=== PATIENT | female | born 1995 | race Caucasian/White ===

== ENCOUNTER 2020-06-03 17:08 | Emergency (ER) | payer OTHER ==
[2020-06-03 17:25] VITALS: BP 147/80
--- NOTE | 2020-06-03 17:29 | ED Physician Documentation ---
PD HPI HEADACHE - Stated complaint Stated Complaint: MARTÍNEZ, BLURRY VISION, 32WKS PREGANT - Chief complaint Chief Complaint: Neuro - History obtained from History obtained from: Patient - History of Present Illness Timing - onset: Today (this morning) Timing - onset during: Rest Timing - duration: Hours Timing - details: Gradual onset (onset of some blurring of vision right lateral visual field, that increased from the side with blurriness, then noted some flashing lights, wiggly lines, nausea and headache. The vision improved after hour or so, but headache persists, along with some nausea.) Worst headache ever?: Worst headache ever? Location: Left Quality: Throbbing, Aching. No: Thunderclap Associated symptoms: Nausea, Vision changes. No: Fever, Stiff neck, Vomiting, Weakness, Numbness Worsened by: Light Contributing factors: Other (32 weeks ). No: Anticoagulated, Recent illness, Trauma Similar symptoms before: Has not had sx before Recently seen: Clinic (normal care so far.) Review of Systems Constitutional: denies: Fever, Chills Eyes: reports: Decreased vision (blurred laterally in right eye), Photophobia. denies: Loss of vision Ears: denies: Loss of hearing Nose: denies: Rhinorrhea / runny nose, Congestion Throat: denies: Sore throat Cardiac: denies: Chest pain / pressure Respiratory: denies: Cough GI: reports: Nausea. denies: Abdominal Pain, Vomiting, Diarrhea : denies: Discharge, Vaginal bleeding Skin: denies: Rash Musculoskeletal: reports: Extremity swelling (mild, slow onset later .). denies: Neck pain, Back pain Neurologic: reports: Generalized weakness, Headache. 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 Normal visual field testing. ), Pharynx benign - Neck Neck: Supple, no meningeal sign, No adenopathy - Cardiac Cardiac: No murmur. No: RRR (regular but tachycardic, even for . ) - Respiratory Respiratory: Clear bilaterally - Abdomen Abdomen: Soft, Non tender, Other (gravid abd with fundus between umbilicus and xyphoid. 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 Concern for pre-eclampsia as cause. Does not seem to be symptoms/clinical concern for ICH/CVA), d/w patient ED course: Dr. Villavicencio, OB, here in ED to assess pt and will take her to L&D for further care, presuming is pre-eclamptic. Departure - Departure Disposition: 01 Home, Self Care Clinical Impression: Headache, Visual disturbance, Condition: Stable Follow-Up: Neli Villavicencio MD [Provider Admit Priv/Credential] - Comments: Go to labor and delivery for further care Discharge Date/Time: 06/03/20 17:57 NIHSS - Level of Consciousness Level of consciousness: (0) Alert, Keenly responsive LOC Questions: (0) Answers both Q's correct LOC Commands: (0) Performs both correctly - Gaze Best Gaze: (0) Normal - Visual Visual: (0) No loss - Facial Palsy Facial Palsy: (0) Normal, symmetrical movement - Motor Arms (both separate) Motor Arm (right): (0) No drift Motor Arm (left): (0) No drift - Motor Legs (both separate) Motor Leg (right): (0) No drift Motor Leg (left): (0) No drift - Limb Ataxia Limb Ataxia: (0) Absent - Sensory Sensory: (0) Normal - Best Language Best Language: (0) No aphasia - Dysarthria Dysarthria: (0) Normal - Extinction and Inattention (formally neg Extinction and inattention: (0) No abnormality - Total Score/Results Total Score/Result: 0
== END 2020-06-03 17:57 | disposition home or self-care (01) ==
LOC: ED 17:08
DX: O99.89 Other specified diseases and conditions complicating pregnancy, childbirth and the puerperium (principal); R51 Headache; H53.8 Other visual disturbances; Z3A.32 32 weeks gestation of pregnancy
CPT/HCPCS: 99284

== ENCOUNTER 2020-06-29 07:00 | Outpatient (CLI) | payer OTHER ==
[2020-06-29 19:01] LABS: TRICHOMONAS VAGINALIS DNA NEGATIVE (NEGATIVE)
== END 2020-06-29 23:59 | disposition home or self-care (01) ==
LOC: LAB.R 07:00
PROVIDERS: ATTEND Obstetrics & Gynecology
DX: Z36.85 Encounter for antenatal screening for Streptococcus B (principal); Z11.3 Encounter for screening for infections with a predominantly sexual mode of transmission
CPT/HCPCS: 87491; 87591; 87661; 87797

== ENCOUNTER 2020-06-29 12:29 | Outpatient (CLI) | payer OTHER ==
[2020-06-29 12:48] VITALS: BP 126/83
[2020-06-29] MEDS ORDERED: LACTATED RINGERS 1,000 ML IV ONE ×2 (13:26→13:28)
[2020-06-29 13:43] LABS: BASOPHILS % (AUTO) 0.5 %; EOSINOPHILS # (AUTO) 0.1 10^3/uL (0.0-0.7); EOSINOPHILS % (AUTO) 0.7 %; HGB - HEMOGLOBIN 12.1 g/dL (12.0-16.0); LYMPHOCYTES # (AUTO) 1.6 10^3/uL (1.5-3.5); LYMPHOCYTES % (AUTO) 19.2 %; MEAN CORPUSCULAR HEMOGLOBIN 30.7 pg (27.0-31.0); MEAN CORPUSCULAR HGB CONC 34.2 g/dL (32.0-36.0); MEAN CORPUSCULAR VOLUME 89.8 fL (81.0-99.0); MEAN PLATELET VOLUME 10.2 fL (7.9-10.8); MONOCYTES # (AUTO) 0.5 10^3/uL (0.0-1.0); MONOCYTES % (AUTO) 5.7 %; NEUTROPHILS # (AUTO) 5.9 10^3/uL (1.5-6.6); NEUTROPHILS % (AUTO) 73.5 %; PLT - PLATELET COUNT 162 10^3/uL (130-450); RED BLOOD COUNT 3.94 10^6/uL (4.20-5.40); RED CELL DISTRIBUTION WIDTH 14.2 % (12.0-15.0); WHITE BLOOD COUNT 8.1 x10^3/uL (4.8-10.8)
--- NOTE | 2020-06-29 16:24 | Ultrasound Report ---
PROCEDURE: OB F/U or Repeat INDICATIONS: growth, hydrocephalus left ventricle OUTSIDE/PRIOR DATING DATA: Last menstrual period (LMP): 10/17/2019 LMP-based estimated date of delivery (SRUHTI): 07/23/2020 First dating scan (date and location): [place] 03/25/2020. Estimated date of delivery (SRUTHI) from first dating scan: 07/21/2020 TECHNIQUE: Real-time scanning was performed of the fetus, with image documentation and biometric measurements. COMPARISON: Outside report [facility] 03/25/2020 FINDINGS: General: A single living intrauterine gestation is present. Presentation: Vertex Placenta: Placental position is fundal, without previa. Amniotic fluid index: 16.9 cm, 69th percentile for gestational age. 4.6 cm heart rate: 132 beats per minute. Maternal cervical canal: 3.5 cm long; normal length is 2.5 cm or more. biometrics: Biparietal diameter: 9.4 cm 38 weeks 2 days Head circumference: 34.2 cm 39 weeks 3 days Abdominal circumference: 34.1 cm 30 weeks 0 days Femur length: 6.6 cm 30 weeks 0 days Estimated gestational age from initial scan: 36 weeks 6 days Composite gestational age from present scan: 37 weeks 3 days Estimated weight and percentile: 3168 g 73rd percentile Measurement variability in biometric dating: +/- 10 days from 12-20 weeks gestation, +/- 2 weeks from 20-30 weeks gestation, +/- 3 weeks at 30 weeks gestation or more. Other: As noted on prior report, there was mild prominence of the left ventricle measuring approximat tacho 13 mm. Measures approximately 15 mm on current exam. BPP Tone: 2 Movement: 2 Respiration: 2 Largest pocket: 2 IMPRESSION: 1. Single live intrauterine patency with ultrasound gestational age of 37 weeks 3 days corresponding to 36 weeks 6 days from initial documented ultrasound. Ultrasound SRUTHI is unchanged at 07/21/2020. 2. BPP 8 out of 8 3. Continued prominence of the left ventricle, as noted on prior exam. Reviewed by: Silvia Watkins MD on 06/29/2020 4:23 PM PDT Approved by: Silvia Watkins MD on 06/29/2020 4:23 PM PDT Station ID: [id number]
--- NOTE | 2020-06-29 16:25 | Ultrasound Report ---
PROCEDURE: OB Biophysical Profile INDICATIONS: growth, hydrocephalus left ventricle OUTSIDE/PRIOR DATING DATA: Last menstrual period (LMP): 10/17/2019 LMP-based estimated date of delivery (SRUTHI): 07/23/2020 First dating scan (date and location): [place] 03/25/2020. Estimated date of delivery (SRUTHI) from first dating scan: 07/21/2020 TECHNIQUE: Real-time scanning was performed of the fetus, with image documentation and biometric measurements. COMPARISON: Outside report [place] 03/25/2020 FINDINGS: General: A single living intrauterine gestation is present. Presentation: Vertex Placenta: Placental position is fundal, without previa. Amniotic fluid index: 16.9 cm, 69th percentile for gestational age. 4.6 cm heart rate: 132 beats per minute. Maternal cervical canal: 3.5 cm long; normal length is 2.5 cm or more. biometrics: Biparietal diameter: 9.4 cm 38 weeks 2 days Head circumference: 34.2 cm 39 weeks 3 days Abdominal circumference: 34.1 cm 30 weeks 0 days Femur length: 6.6 cm 30 weeks 0 days Estimated gestational age from initial scan: 36 weeks 6 days Composite gestational age from present scan: 37 weeks 3 days Estimated weight and percentile: 3168 g 73rd percentile Measurement variability in biometric dating: +/- 10 days from 12-20 weeks gestation, +/- 2 weeks from 20-30 weeks gestation, +/- 3 weeks at 30 weeks gestation or more. Other: As noted on prior report, there was mild prominence of the left ventricle measuring approximat tacho 13 mm. Measures approximately 15 mm on current exam. BPP Tone: 2 Movement: 2 Respiration: 2 Largest pocket: 2 IMPRESSION: 1. Single live intrauterine patency with ultrasound gestational age of 37 weeks 3 days corresponding to 36 weeks 6 days from initial documented ultrasound. Ultrasound SRUTHI is unchanged at 07/21/2020. 2. BPP 8 out of 8 3. Continued prominence of the left ventricle, as noted on prior exam. Reviewed by: Silvia Watkins MD on 06/29/2020 4:24 PM PDT Approved by: Silvia Watkins MD on 06/29/2020 4:24 PM PDT Station ID: [id number]
--- NOTE | 2020-07-24 14:53 | PROCEDURE REPORT ---
- HPI Diagnosis/Indication for NST: Other ( ventriculomegaly) Current EDU 07/23/20 Gestation 36 Weeks and 4 Days 1 Para 0 Vital Signs Temperature 98.2 F 06/29/20 12:45 Heart Rate 126 H 06/29/20 12:45 Respiratory Rate 20 06/29/20 12:45 Blood Pressure 126/83 H 06/29/20 12:45 O2 Saturation 99 06/29/20 12:45 Temperature 98.4 F 06/29/20 12:47 Heart Rate 122 H 06/29/20 12:47 Respiratory Rate 18 06/29/20 12:47 Blood Pressure 126/83 H 06/29/20 12:47 O2 Saturation 100 06/29/20 12:47 - NST Procedure NST Procedure Start Date 06/29/20 Start Time 12:38 Stop Time 14:05 Vibroacoustic Stimulation Used No Patient States Movement Yes EFM 130 mod she 15 x15 accels no decels TOCO: irritable Initial period of marked variability resolved on extended monitoring - Results and Plan Findings/Impression: Cat I tracing Cont with twice weekly NST and weekly NAYELI
== END 2020-06-29 15:00 | disposition home or self-care (01) ==
LOC: WFO 12:29 → FBP 12:30 → WFO 15:00
PROVIDERS: ATTEND Obstetrics & Gynecology
DX: O09.90 Supervision of high risk pregnancy, unspecified, unspecified trimester (principal); O36.8930 Maternal care for other specified fetal problems, third trimester, not applicable or unspecified; Z3A.36 36 weeks gestation of pregnancy; Z36.85 Encounter for antenatal screening for Streptococcus B; Z11.3 Encounter for screening for infections with a predominantly sexual mode of transmission
CPT/HCPCS: 36415; 59025; 76816; 76819; 84443; 85025; 87491; 87591; 87661; 87797; J7120

== ENCOUNTER 2020-07-02 13:26 | Outpatient (CLI) | payer OTHER ==
[2020-07-02 13:57] VITALS: BP 104/55
--- NOTE | 2020-07-03 12:07 | PROCEDURE REPORT ---
- HPI Diagnosis/Indication for NST: Other ( ventriculomegaly) Current EDU 07/23/20 Gestation 37 Weeks and 0 Days 1 Para 0 Vital Signs Temperature 98.2 F 07/02/20 13:47 Heart Rate 112 H 07/02/20 13:47 Respiratory Rate 18 07/02/20 13:47 Blood Pressure 104/55 L 07/02/20 13:47 O2 Saturation 100 07/02/20 13:47 Temperature 98.2 F 07/02/20 13:47 Heart Rate 112 H 07/02/20 13:47 Respiratory Rate 18 07/02/20 13:47 Blood Pressure 104/55 L 07/02/20 13:47 O2 Saturation 100 07/02/20 13:47 - NST Procedure NST Procedure Start Date 07/02/20 Start Time 13:37 Stop Time 14:00 Vibroacoustic Stimulation Used No Patient States Movement Yes EFM 145 mod she 15x15 accels no decels TOCO: quiet - Results and Plan Findings/Impression: 25 yo at 37+0 wga with affected by ventriculomegaly Cat I tracing Cont with twice weekly NST and weekly NAYELI DC to home
== END 2020-07-02 14:05 | disposition home or self-care (01) ==
LOC: WFO 13:26 → FBP 13:27 → WFO 14:05
PROVIDERS: ATTEND Obstetrics & Gynecology
DX: O35.8XX0 Maternal care for other (suspected) fetal abnormality and damage, not applicable or unspecified (principal); Z3A.37 37 weeks gestation of pregnancy
CPT/HCPCS: 59025

== ENCOUNTER 2020-07-06 20:43 | Outpatient (CLI) | payer OTHER ==
[2020-07-06 21:03] VITALS: BP 118/76
--- NOTE | 2020-07-07 16:32 | Ultrasound Report ---
PROCEDURE: OB Biophysical Profile INDICATIONS: LEFT VENTRICULAR ENLARGEMENT OUTSIDE/PRIOR DATING DATA: Last menstrual period (LMP): 10/17/2019. LMP-based estimated date of delivery (SRUTHI): 07/23/2020. First dating scan (date and location): 03/25/2020. Estimated date of delivery (SRUTHI) from first dating scan: 07/21/2020. TECHNIQUE: Real-time scanning was performed of the fetus, with image documentation and biometric arnold surements. Biophysical profile was also obtained. Endovaginal scanning: Not performed COMPARISON: Ultrasound dated 06/29/2020 FINDINGS: General: A single living intrauterine gestation is present. Presentation: Vertex Placenta: Placental position is fundal, without previa. Amniotic fluid index: 19.4 cm, 82% for gestational age. heart rate: 152 beats per minute. Maternal cervical canal: 5.4 cm long; normal length is 2.5 cm or more. Biophysical profile: Tone: 2 points. Movement: 2 points. Respiration: 2 points. Largest pocket of fluid: 2 points. (7.0 cm) Umbilical artery Doppler: SD ratio measures 2.9, 2.3, 2.7 Left lateral ventricle measures 14 mm although not well seen, previously 13 mm. IMPRESSION: Single living intrauterine fetus in vertex presentation Normal biophysical profile Normal cord Doppler examination Reviewed by: Allan Medina MD on 07/07/2020 4:31 PM PDT Approved by: Allan Medina MD on 07/07/2020 4:31 PM PDT Station ID: [id number]
== END 2020-07-06 21:30 | disposition home or self-care (01) ==
LOC: WFO 20:43 → FBP 20:48 → WFO 21:30
PROVIDERS: ATTEND Obstetrics & Gynecology
DX: O09.93 Supervision of high risk pregnancy, unspecified, third trimester (principal)
CPT/HCPCS: 59025; 76819

== ENCOUNTER 2020-07-09 13:24 | Outpatient (CLI) | payer OTHER ==
[2020-07-09 14:19] VITALS: BP 121/76
--- NOTE | 2020-07-09 17:29 | PROCEDURE REPORT ---
- HPI Diagnosis/Indication for NST: Other ( ventriculomegaly) Current EDU 07/23/20 Gestation 38 Weeks and 0 Days 1 Para 0 Vital Signs Temperature 97.9 F 07/09/20 14:00 Heart Rate 110 H 07/09/20 14:00 Respiratory Rate 18 07/09/20 14:00 Blood Pressure 121/76 07/09/20 14:00 O2 Saturation 100 07/09/20 14:00 Temperature 97.9 F 07/09/20 14:00 Heart Rate 110 H 07/09/20 14:00 Respiratory Rate 18 07/09/20 14:00 Blood Pressure 121/76 07/09/20 14:00 O2 Saturation 100 07/09/20 14:00 - NST Procedure NST Procedure Start Date 07/09/20 Start Time 13:35 Stop Time 14:14 Vibroacoustic Stimulation Used No Patient States Movement Yes - Results and Plan Findings/Impression: Category 1 NST [place] neg Continue routine surveillance
== END 2020-07-09 14:15 | disposition home or self-care (01) ==
LOC: WFO 13:24 → FBP 13:27 → WFO 14:15
PROVIDERS: ATTEND Obstetrics & Gynecology
DX: O35.0XX0 Maternal care for (suspected) central nervous system malformation in fetus, not applicable or unspecified (principal)
CPT/HCPCS: 59025

== ENCOUNTER 2020-07-13 12:18 | Outpatient (CLI) | payer OTHER ==
--- NOTE | 2020-07-13 14:51 | Ultrasound Report ---
PROCEDURE: OB Biophysical Profile INDICATIONS: SUPERVISION OF HIGH RISK OUTSIDE/PRIOR DATING DATA: Last menstrual period (LMP): 10/17/2019. LMP-based estimated date of delivery (SRUTHI): 07/23/2020. First dating scan (date and location): 03/25/2020. Estimated date of delivery (SRUTHI) from first dating scan: 07/21/2020. TECHNIQUE: Real-time scanning was performed of the fetus, with image documentation and biometric arnold surements. Biophysical profile was also obtained. Endovaginal scanning: Not performed COMPARISON: 07/06/2020 FINDINGS: General: A single living intrauterine gestation is present. Presentation: Vertex Placenta: Placental position is fundal, without previa. Amniotic fluid index: 17.0 cm, 76th percentile for gestational age. Largest vertical fluid pocket m easured 5.1 cm. heart rate: 163 beats per minute. Maternal cervical canal: Not well visualized due to positioning low in the pelvis. Biophysical profile: Tone: 2 points. Movement: 2 points. Respiration: 2 points. Largest pocket of fluid: 2 points. (5.1 cm) Umbilical artery Doppler: 8 out of 8. Normal appearance of cord Doppler waveforms. IMPRESSION: Single living intrauterine gestation with estimated gestational age of approximately 38 weeks and 6 d ays. Normal biophysical profile. Normal cord Doppler examination. Reviewed by: Connor Houser MD on 07/13/2020 2:49 PM PDT Approved by: Connor Houser MD on 07/13/2020 2:49 PM PDT Station ID: [id number]
== END 2020-07-13 12:19 | disposition home or self-care (01) ==
LOC: DI 12:18
PROVIDERS: ATTEND Obstetrics & Gynecology
DX: O09.90 Supervision of high risk pregnancy, unspecified, unspecified trimester (principal); Z3A.38 38 weeks gestation of pregnancy
CPT/HCPCS: 76819

== ENCOUNTER 2020-07-13 13:14 | Outpatient (CLI) | payer OTHER ==
[2020-07-13 13:49] VITALS: BP 139/87
--- NOTE | 2020-07-13 14:33 | PROCEDURE REPORT ---
- HPI Diagnosis/Indication for NST: Other ( hydrocephalus) Current EDU 07/23/20 Gestation 38 Weeks and 4 Days 1 Para 0 Vital Signs Temperature 97.8 F 07/13/20 13:31 Heart Rate 110 H 07/13/20 13:31 Respiratory Rate 18 07/13/20 13:31 Blood Pressure 131/92 H 07/13/20 13:31 O2 Saturation 99 07/13/20 13:31 Temperature 97.8 F 07/13/20 13:31 Heart Rate 110 H 07/13/20 13:31 Respiratory Rate 18 07/13/20 13:31 Blood Pressure 139/87 H 07/13/20 13:49 O2 Saturation 99 07/13/20 13:31 - NST Procedure NST Procedure Start Date 07/13/20 Start Time 13:23 Stop Time 13:55 Vibroacoustic Stimulation Used No Patient States Movement Yes - Results and Plan Findings/Impression: Category 1 NST [place] neg Continue surveillance, has f/u with MFM tomorrow for delivery planning.
== END 2020-07-13 14:10 | disposition home or self-care (01) ==
LOC: WFO 13:14 → FBP 13:16 → WFO 14:10
PROVIDERS: ATTEND Obstetrics & Gynecology
DX: O35.0XX0 Maternal care for (suspected) central nervous system malformation in fetus, not applicable or unspecified (principal); Z3A.38 38 weeks gestation of pregnancy; O09.90 Supervision of high risk pregnancy, unspecified, unspecified trimester
CPT/HCPCS: 59025; 76819

== ENCOUNTER 2020-08-23 07:00 | Outpatient (CLI) | payer OTHER ==
[2020-08-24 20:38] LABS: CANDIDA GROUP DNA NEGATIVE (NEGATIVE); CANDIDA KRUSEI DNA NEGATIVE (NEGATIVE); TRICHOMONAS VAGINALIS DNA NEGATIVE (NEGATIVE)
== END 2020-08-23 23:59 | disposition home or self-care (01) ==
LOC: LAB.R 07:00
PROVIDERS: ATTEND Obstetrics & Gynecology
DX: N89.8 Other specified noninflammatory disorders of vagina (principal)
CPT/HCPCS: 87661; 87801

== ENCOUNTER 2022-08-03 08:46 | Outpatient (CLI) | payer OTHER ==
--- NOTE | 2022-08-03 09:17 | SLEEP CARE CONSULTATION ---
Information from patient questionnaire entered by Niharika Lewis. I have reviewed and concur with the information entered by Niharika Lewis. This document represents the service I personally performed and the decisions made by me, Ailyn Bess ARNP. History of Present Illness Service Date and Time: 08/03/2022 0846 Reason for Visit: New patient Chief Complaint: reports: Unrefreshed sleep, Excessive daytime sleepiness, Fatigue Date of Onset: 2 years Usual bedtime: 10-1030pm Time it takes to fall asleep: 5-10 minutes Snores at night: Yes Observed to quit breathing while asleep: No Sleeps alone due to snoring: No Number of times waking at night: 1-2 Reasons for waking at night: reports: Other (TODDLER COMING IN OR BAD DREAM). denies: Choking, Snoring, Gasping for air Toss, Turn, or Twitch while sleeping: No Recalls having dreams: Yes Usually gets out of bed at: 630-7AM Feels refreshed in the morning: No Morning headache: No Sleepy or fatigued during the day: Yes Ever fallen asleep while driving: Yes (drowsy driving, no accidents) Takes day naps: Yes (couple minutes to 1 hour; unintentional naps) Dreams during day naps: Yes Prior sleep studies: No Additional HPI information: I had the pleasure of seeing OSCAR GARCIA today regarding the possibility of her having a sleep disorder. Her current complaints are unrefreshed sleep, excessive daytime sleepiness and fatigue. She states she has excessive fatigue daily for the last 2 years. She is falling asleep at work twice a day. She does not wake up feeling refreshed after 8 hours of sleep. She gets drowsy driving after 40 minutes of [address]. She states her told her she has mild snoring. He has not noted pauses in breathing, choking or gasping sounds in her sleep. - Parasomnia Symptoms Ever been unable to move upon waking from sleep: No Walks in sleep: No Talks in sleep: No Ever acted out dreams in sleep: Yes (arm movements, "nothing dramatic") Ever felt weak in the knees when startled or emotional: Yes (has not fallen to ground) Bothered by creepy, crawly, restless sensations in legs: Yes (throughout day, had to keep still) Problems with memory or concentration: Yes (memory more; some concentration when really tired) Subjective Initial [place] Sleepiness Scale score: 17 (07/30/22) Past Medical History Past Medical History: reports: Anxiety, Depression Social History The patient's occupation is a [employer]. Patient is and lives in [place]. Have you smoked in the past 12 months: No Alcohol use: Yes Alcohol amount and frequency: 2-3 GLASSES OF WINE PER MONTH Caffeine use: Yes Caffeine amount and frequency: 2-3 DAILY Family History Family history of sleep disordered breathing: No (unknown: closed adoption) Allergies and Home Medications Drug allergies reviewed: Yes (NKDA) Home medication list reviewed: Yes Allergy and home medication list: Allergies No Known Drug Allergies Allergy (Verified 06/03/20 17:25) Medications: Nexplanon implant, inserted 07/24/2020 Duloxetine 20 mg daily Cetrizine 10 mg daily Review of Systems Weight gain over past 5 years: 30 Cardiovascular: denies: high blood pressure Urinary: reports: urgency Neurological: reports: headaches. denies: head trauma Psychiatric: reports: anxiety, depression Ear/Nose/Throat: reports: wisdom teeth removed (2013). denies: tonsillectomy Endocrine: denies: thyroid disease Musculoskeletal: reports: back pain Immunologic: denies: allergies to food or environment Physical Exam Vital signs obtained and entered by: ANT PEARL Blood Pressure: 120/74 (LEFT ARM ) Cuff size: regular Heart Rate: 94 O2 Saturation: 99 Height: 5 ft 2 in Weight: 211 lb Body Mass Index: 38.5 BMI Classification: Obese Neck circumference: 15.5 (INCHES) Mouth and throat: narrow oropharynx Soft palate: long Hard palate: normal Uvula: long Uvula visualization: 50% Mallampati Class II Tongue: enlarged in size with teeth perea on lateral edges Tonsils: 2+ Neck: normal w/o lymphadenopathy or thyromegaly Heart: regular rate and rhythm Lungs: clear bilaterally Impression and Plan 1. Suspected Obstructive Sleep Apnea-Hypopnea Syndrome, as suggested by a history of irregular snoring, unrefreshed sleep, cognitive impairment, and excessive daytime sleepiness. Narrow oropharynx and obesity are common predisposing factors for obstructive sleep apnea-hypopnea syndrome. I recommend proceeding to polysomnography to confirm the diagnosis and to assess severity. If the patient has significant sleep disordered breathing, a manual CPAP titration study will also be performed to find the optimal treatment pressure. I informed the patient of what the sleep studies involve and after some discussion, obtained agreement to proceed. The pathophysiology of obstructive sleep apnea-hypopnea syndrome was discussed with the patient and health risks of cardiovascular and cerebrovascular disease if not treated. 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 Patient agreed to plan. * Schedule polysomnography * Avoid long distance driving or driving when feeling sleepy. * Avoid alcohol, sedative and muscle relaxant around bedtime. * Attempt to lose weight. * Review instructions provided by trained office staff on how to prepare for the sleep study. * Return for follow-up after sleep study completed. Counseling Topics: Weight loss health impact Visit Type: In Office Time Spent with Patient (minutes): 31 Provider Statement: I spent 100% of the Face to Face Visit with the patient with greater than 50% spent counseling the patient and coordination of care.
[2022-08-03 09:18] VITALS: BP 120/74
== END 2022-08-03 08:47 | disposition home or self-care (01) ==
LOC: SC 08:46
PROVIDERS: ATTEND Nurse Practitioner Family
DX: R06.83 Snoring (principal); G47.8 Other sleep disorders; G47.10 Hypersomnia, unspecified; R53.83 Other fatigue; F32.A Depression, unspecified; E66.9 Obesity, unspecified; Z68.38 Body mass index [BMI] 38.0-38.9, adult
CPT/HCPCS: 99203; 99212

== ENCOUNTER 2022-08-25 21:06 | Outpatient (CLI) | payer OTHER | END 2022-08-25 21:07 | disposition home or self-care (01) | LOC: SC 21:06 | PROVIDERS: ATTEND Nurse Practitioner Family | DX: G47.33 Obstructive sleep apnea (adult) (pediatric) (principal) | CPT/HCPCS: 95810 ==

== ENCOUNTER 2022-09-22 08:26 | Outpatient (CLI) | payer OTHER ==
[2022-09-22 08:59] VITALS: BP 116/68
--- NOTE | 2022-09-22 08:59 | SLEEP CARE CONSULTATION ---
Information from patient questionnaire entered by Alisa Ngo. I have reviewed and concur with the information entered by Alisa Ngo. This document represents the service I personally performed and the decisions made by , Ailyn Bess ARNP. History of Present Illness Service Date and Time: 09/22/2022825 Initial [place] Sleepiness Scale score: 17 (07/30/22) Current [place] Sleepiness Scale score: 15 (09/22/2022) Additional HPI information: OSCAR GARCIA returns for follow up and results of the recently performed polysomnography. I explained the pathophysiology behind obstructive sleep apnea. We then spent quite a bit of time discussing different treatment options. For mild obstructive sleep apnea, surgery and oral appliance are alternatives to nasal CPAP therapy but in moderate or severe cases, nasal CPAP is the most effective and reliable treatment. Because apnea is primarily in supine position, then positional management therapy could be effective. Methods discussed such as positioning with pillows to prevent supine sleep. I reviewed the impact of weight changes on sleep apnea and strongly recommended losing weight. After some discussion, the patient opted to go with the nasal CPAP therapy. Nasal autoCPAP set at 4-15 cmH20 will be ordered with rationale explained. A manual titration study will be ordered if unable to find optimal pressure with office adjustments. I explained how CPAP machine works and what to expect when using the machine. Using CPAP every night in order to get used to it was emphasized. Patient advised to put CPAP mask on before getting into bed so as not to fall asleep wi thout CPAP. To assist acclimation to CPAP use, it could also be used for a short time during day while reading or watching TV. The patient was instructed to call the CPAP supplier to discuss any mechanical problem that may occur. If the mask given is uncomfortable or is difficult to keep on through the night even with adjustment, contact the CPAP supplier as many will replace with another mask style if notified before 30 days. If snoring or perceives is not getting enough air or too much air from the machine, notify this office. Patient counseled not drink alcohol less than 4 hours before bedtime as it can increase snoring and apnea. Patient was cautioned about risks of drowsy driving until sleepiness symptoms resolve. Sleep Study - Results Type of Sleep Study: Polysomnography (COMPLETED 08/25/2022) Prior sleep studies: No Polysomnography/Home Sleep Study results: IMPRESSION: The quality of the study is good. The patient had normal sleep efficiency. The sleep architecture was relatively normal as well considering the first-night effect. Respiratory monitoring showed mild obstructive sleep apnea-hypopnea (AHI = 8.7) associated with oxyhemoglobin desaturation and mild hypoxia ([place] oxygen saturation of 88%). The respiratory events occurred mainly during REM sleep (supine AHI = 20.4; non-supine = 6.59). Snore was light to moderate in intensity. There was no significant periodic leg movement of sleep. Cardiac rhythm was normal sinus rhythm without significant arrhythmia. No abnormal behavior (parasomnia) observed during the night. Allergies and Home Medications Drug allergies reviewed: Yes (NKDA) Home medication list reviewed: Yes (no changes) Review of Systems Review of systems same as previous: Yes (no changes) Physical Exam Vital signs obtained and entered by: ALISA Parr MA Blood Pressure: 116/68 (LEFT ARM) Cuff size: regular Heart Rate: 100 O2 Saturation: 97 Height: 5 ft 2 in Weight: 213 lb 6.4 oz Body Mass Index: 39.0 BMI Classification: Obese Impression and Plan 1. Obstructive Sleep Apnea-Hypopnea Syndrome, mild, with lowest oxygen saturation of 88%. Obviously this is the cause of the patients symptoms of unrefreshed sleep, and excessive daytime sleepiness. Positive pressure therapy could benefit anxiety and depression. As mentioned above, the patient will be started on nasal autoCPAP therapy with pressure set at 4-15 cmH2O. Compliance guidelines also reviewed. A copy of compliance guidelines will be given for reference at check out. Because the apnea is more severe supine, I instructed to avoid sleeping supine using pillow positioning until able to start CPAP use. 2. Obesity, unspecified. Currently patients BMI is 39.0. Obesity increases the risk of apnea, CPAP pressure requirements and overall health risks especially cardiovascular and diabetes. Thus patient is advised to lose weight. Weight loss can be done with reducing portion size, reducing refined foods and balancing content with vegetables, fruit and whole grain foods. In addition, patient encouraged to get regular exercise. * Nasal auto CPAP therapy, pressure at 4-15 cm H2O. * Attempt to lose weight. * Avoid alcohol consumption near bedtime. * Avoid supine sleep until using CPAP. * The patient is again cautioned about driving until sleepiness completely resolves. * Return one month after CPAP obtained. I will assess response to therapy and compliance at that time. Counseling Topics: Weight loss health impact Visit Type: In Office Time Spent with Patient (minutes): 21 Provider Statement: I spent 100% of the Face to Face Visit with the patient with greater than 50% spent counseling the patient and coordination of care.
== END 2022-09-22 08:27 | disposition home or self-care (01) ==
LOC: SC 08:26
PROVIDERS: ATTEND Nurse Practitioner Family
DX: G47.33 Obstructive sleep apnea (adult) (pediatric) (principal); E66.9 Obesity, unspecified; Z68.39 Body mass index [BMI] 39.0-39.9, adult
CPT/HCPCS: 99212; 99213